=== PATIENT | male | born 1990 | race Caucasian/White ===

== ENCOUNTER → 2017-06-30 | Outpatient (CLI) | payer BC ==
[2017-06-30 14:25] LABS: SEMEN TIME OF COLLECTION 1230
[2017-06-30 14:26] LABS: DAYS OF ABSTINENCE 3; METHOD OF COLLECTION MASTURBATION; SEMEN COLOR YELLOW-GRAY (GRY/GRYWHTE); SEMEN VOLUME 3.2 ML (>1.5); TYPE OF SPECIMEN CONTAINER STERILE CUP
[2017-06-30 14:27] LABS: SPERM VIABILITY STAIN NOT INDICATED % (>58%)
== END | disposition home or self-care (01) ==
LOC: C.LABSPEC 13:01
PROVIDERS: ATTEND Obstetrics & Gynecology
DX: Z31.41 Encounter for fertility testing (principal)